=== PATIENT | female | born 1990 | race African-American/Black ===

== ENCOUNTER 2017-02-25 09:00 | Emergency (ER) | payer BC, OTHER ==
[2017-02-25 09:14] VITALS: BP 150/98; PULSE 101; TEMP 97.8; BMI 28.3
[2017-02-25] MEDS ORDERED: IBUPROFEN 600 MG TABLET (FP) PO ONE ×2 (09:27→09:41)
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
[2017-02-25 09:31] LABS: URINE APPEARANCE Clear; URINE BILIRUBIN Negative (NEGATIVE); URINE BLOOD Negative (NEGATIVE); URINE GLUCOSE (UA) Negative (NEGATIVE); URINE KETONE Negative (NEGATIVE); URINE LEUK ESTERASE Negative (NEGATIVE); URINE NITRITE Negative (NEGATIVE); URINE UROBILINOGEN 0.2 (0.2-1.0)
[2017-02-25 09:32] LABS: URINE COLOR YELLOW; URINE PROTEIN 1+ (NEGATIVE)
[2017-02-25 09:33] LABS: URINE BACTERIA FEW /hpf (NEGATIVE); URINE RBC 0-3 /hpf (0-3); URINE WBC 0-3 /hpf (3-5)
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
== END 2017-02-25 11:06 | disposition home or self-care (01) ==
LOC: FER 09:00
DX: Z04.1 Encounter for examination and observation following transport accident (principal)
CPT/HCPCS: 71020-TC; 81003; 81015; 84703; 99284-25

== ENCOUNTER 2017-06-12 17:56 | Emergency (ER) | payer BC ==
[2017-06-12 18:36] VITALS: BP 131/84; PULSE 94; TEMP 98.9; BMI 25.7
--- NOTE | 2017-06-12 19:36 | PDOC ---
History of Present Illness - General Chief Complaint: Cold Symptoms Stated Complaint: COLD SYMPTOMS Time Seen by Provider: 06/12/17 19:30 History Source: Patient Exam Limitations: No Limitations - History of Present Illness Initial Comments: 06/12/17 19:36 Patient is here concerned about being sick and wanted "to be checked out". States was ill last week with fevers, chills, moist cough and body aches. Took about of home remedies and homeopathic remedies and states feels much improved. Has had no fever since last week. However boyfriend is now here with fevers, chills, flulike symptoms and she wanted to make sure "she wasn't still sick" Severity: reports: mild Modifying Factors: improves with: activity Associated Symptoms: reports: denies symptoms, cough, facial pain, fever/chills , headache Past History - Travel Traveled outside of the country in the last 30 days: No Close contact w/someone who was outside of country & ill: No - Past Medical History Allergies/Adverse Reactions: Allergies Allergy/AdvReac Type Severity Reaction Status Date / Time No Known Allergies Allergy Verified 06/12/17 18:32 Home Medications: Ambulatory Orders NK [No Known Home Medication] 02/25/17 Anemia: Yes COPD: No - Suicide/Smoking/Psychosocial Hx Smoking History: Never smoked Have you smoked in the past 12 months: No Hx Alcohol Use: (occasional) Drug/Substance Use Hx: No Substance Use Type: None Review of Systems - Review of Systems Able to Perform ROS?: Yes Is the patient limited Telugu proficient: Yes Constitutional: Yes: Symptoms Reported, See HPI, Malaise. No: Chills, Fever, Loss of Appetite HEENTM: Yes: Symptoms Reported, Nose Congestion, Throat Pain. No: Dental Problems, Difficulty Swallowing, Mouth Swelling Respiratory: Yes: Symptoms reported, See HPI, Cough (with pleuritic type chest pain) Musculoskeletal: Yes: Symptoms Reported, See HPI, Muscle Pain Integumentary: Yes: See HPI. No: Symptoms Reported All Other Systems: Reviewed and Negative *Physical Exam - Vital Signs Last Vital Signs Temp Pulse Resp BP Pulse Ox 98.9 F 94 H 16 131/84 98 06/12/17 18:33 06/12/17 18:33 06/12/17 18:33 06/12/17 18:33 06/12/17 18:33 - Physical Exam General Appearance: Yes: Nourished, Appropriately Dressed. No: Apparent Distress HEENT: positive: JULES, Normal ENT Inspection, TMs Normal, Pharynx Normal, Nasal Congestion, Rhinorrhea Neck: positive: Supple, Lymphadenopathy (R) (nontender), Lymphadenopathy (L). negative: Tender Respiratory/Chest: positive: Lungs Clear, Normal Breath Sounds. negative: Respiratory Distress Cardiovascular: positive: Regular Rhythm, Regular Rate Gastrointestinal/Abdominal: positive: Soft. 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 (Is here with boyfriend who is ill with high fevers and what sound to be influenzal type symptoms.) There is no further treatment needed for this patient *DC/Admit/Observation/Transfer Diagnosis at time of Disposition: Viral illness - Discharge Dispostion Disposition: HOME Condition at time of disposition: Stable Admit: No - Referrals - Patient Instructions Printed Discharge Instructions: DI for Common Cold Additional Instructions: Rest, drink lots of fluids: Teas, water, soups, Pedialyte Saltwater gargles Steamy showers/seem to face break up mucus Avoid contact with others until fevers and cough resolved Lots of handwashing and good hygiene Continue [id number] medications for symptomatic relief Tylenol or Motrin for fever and pain Followup with private physician in one to 2 days as needed Return to emergency department for worsened symptoms, fevers, dehydration - Post Discharge Activity Forms/Work/School Notes: Back to Work
== END 2017-06-12 19:47 | disposition home or self-care (01) ==
LOC: JERFT 17:56
DX: J00 Acute nasopharyngitis [common cold] (principal)
CPT/HCPCS: 99281-25